=== PATIENT | female | born 1970 | race Caucasian/White ===

== ENCOUNTER 2021-02-08 08:49 | Outpatient (REF) | payer OTHER, SELFPAY ==
--- NOTE | ~2021-02-08 | MR_ITS ---
EXAMINATION: MR BRAIN WITHOUT CONTRAST CLINICAL INFORMATION: Dizziness. Cerebellar ataxia. COMPARISON: None TECHNIQUE: Multiplanar, multisequence imaging of the brain was performed without contrast. FINDINGS: No diffusion abnormalities are identified to suggest an acute or subacute infarct. The ventricles are normal in size. No mass effect or midline shift is seen. Minimal left frontal white matter signal changes noted. No extra-axial fluid collections are seen. The brainstem is normal. The right cerebellar tonsil is slightly low-lying but maintains a normal rounded configuration. The gradient refocused acquisition is normal. The craniovertebral junction, marrow signal, and midline structures are normal. The major intracranial flow voids at the level of the quinault of Jones are preserved. The dural venous sinus flow voids are maintained. The paranasal sinuses are fairly well aerated. There is a mild amount of fluid in the mastoid air cells bilaterally. MR/MR head/brain wo con IMPRESSION: No acute intracranial process. Minimal left frontal white matter signal changes. Mildly low-lying right cerebellar tonsil with a normal rounded configuration. Mild amount of fluid in the mastoid air cells bilaterally.
== END 2021-02-08 08:50 | disposition home or self-care (01) ==
LOC: HO.MRI 08:49
PROVIDERS: PCP Internal Medicine; Visit Provider Psychiatry & Neurology Neurology
DX: R42 Dizziness and giddiness (principal); G11.9 Hereditary ataxia, unspecified
CPT/HCPCS: 70551

== ENCOUNTER 2025-03-21 10:03 | Outpatient (AMB) | payer OTHER, SELFPAY ==
--- NOTE | 2025-03-21 10:12 | A.OFFVIS_ITS ---
Intake Visit Reasons: 3 mnts Allergies sulfamethoxazole (From Bactrim) Allergy (Unknown, Verified 03/21/25 10:13) Unknown trimethoprim (From Bactrim) Allergy (Unknown, Verified 03/21/25 10:13) Unknown Medication List - Last Reconciled 03/21/25 by Janelle Velez CNP cholecalciferol (vitamin D3) 50 mcg PO DAILY cyclosporine 0.05% (Restasis) 1 drp ophthalmic (eye) Q12H ferrous sulfate 325 mg PO BID primidone 50 mg PO BEDTIME sertraline 150 mg PO DAILY HPI Comments Details: She was doing okay. Primidone was helping with tremor, could be worse at times, especially with stress. No functional impairment. No difficulty eating, drinking, or swallowing. Some stress at home and work. 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 Tremor does not interfere with work. Few occasional headaches. Vision was about the same. Some occasional dizziness and feeling off balance, no falls. Has been losing weight and has appt with GI in 04/2025. Had hysterectomy in 02/2024 followed by hypotension and very low Hgb, hospitalized for 6 days with multiple transfusions. More tremors after pro pranolol was stopped in 03/2024. Chappells vision was getting worse, twitching in lids. Legs are heavy. One?fall at work when a sticky tape caught her leg unwrapping a pallet. Clumsy and dropping things.?Vision problems from dry eyes. She's also had chronic low back pain and neck pain, occasional tingling here and there. Sometimes she feels she has a brain fog, forgets names and processes. She has 2 sons who have Asperger syndrome. She is the sole provider. does not work. She has had her struggles with depression, currently under control. She has H/O neck injury and at work in February of 2015 with 3 bulging disks C5-6-7 and a possible small disc herniation at C5-6.? She has been?followed for ?tremors in her hands and sometimes in her leg that come and go as well as twitching in various muscles occur randomly when she is sitting and resting and some balance issues. Has chronic neck pain. [facility] Medical History (Updated 03/21/25 @ 10:17 by Janelle Velez CNP) Tension headache Peripheral neuropathy Cerebellar ataxia Insomnia Facial paralysis Muscle fasciculation Benign essential tremor Surgical History (Updated 03/21/25 @ 10:13 by Janelle Velez CNP) H/O: hysterectomy Review of Systems Const Denies chills, Denies daytime sleepiness, Reports difficulty sleeping, Denies fatigue, Denies fever(s), Denies frequent falls, Reports headache(s), Denies increased appetite, Denies poor appetite, Denies snoring, Denies weakness, Denies weight gain and Reports weight loss Eyes Denies loss of vision ENT Denies vertigo, Denies dizziness, Reports headache(s) and Denies neck pain Card Denies chest pain at rest, Denies chest pain with activity, Denies syncope, Denies leg edema, Denies palpitations, Denies dyspnea and Denies dyspnea on e xertion Resp Denies cough, Denies dyspnea, Denies dyspnea on exertion and Denies snoring GI Denies abdominal pain, Denies constipation, Reports heartburn, Denies diarrhea and Denies nausea Denies urinary frequency, Denies urinary incontinence and Denies urinary urgency Musc Denies abnormal gait, Denies back pain, Denies myalgias, Reports arthralgias, Denies neck pain, Denies numbness and Denies tingling Neuro Denies abnormal gait, Denies vertigo, Denies dizziness, Denies syncope, Denies frequent falls, Reports headache(s), Denies lack of coordination, Denies loss of vision, Reports memory loss, Denies numbness, Denies Other visual disturbances, Denies restless legs, Denies seizure-like activity, Denies tingling, Denies paresthesias, Reports tremor(s) and Denies weakness Psych Reports anxiety, Reports depression, Denies auditory hallucinations, Reports memory loss and Denies visual hallucinations Endo Denies fatigue and Denies palpitations Physical Exam Const Other: General Appearance:? normal, in no acute distress. Heart:? S1, S2 normal, no murmurs. Lungs:? clear anteriorly and posteriorly. Musculoskeletal:? normal. Extremities:? no edema. Psych:? alert, oriented, cognitive function intact, cooperative with exam. Neuro Other: Abnormal Neurological Findings:?Facial asymmetry. Very mild L > R tremor of extended upper extremities. Mental Status: alert and oriented X 3. Normal attention, orientation, memory, and affect. Cranial Nerves: Pupils are equal, round, and reactive to light. External ocular muscles are intact. Visual cam are full, no ptosis. Facial asymmetry. Facial sensations are normal. Tongue protrudes in midline. Palate elevates symmetrically. Shoulder shrugging is normal Motor Examination: Normal muscle tone, bulk and strength. No atrophy or fasciculations. No drift of the extended upper extremities. DTR 2+. Plantars are flexor. Sensory Exam: Normal light touch, temperature, pinprick, vibration, and joint- position sensations. Rhomberg sign is absent. Coordination: No ataxia. No titubation. Avtsah-dc-dgav, ohrg-gawg-fkev test, and rapid alternating movements were normal. Gait Exam: Within normal limits. Cerebellar Signs: Vkusds-tw-urdz and vzjr-ak-pogw is normal. No dysdiadochokinesia. Extrapyramidal System: Tremor as above. No rigidity with normal facial expressions. No bradykinesia. No bradyphrenia. Normal arm swing and posture. No propulsion or retropulsion. Speech: Normal. No dysphasia or dysarthria. Assessment & Plan Assessment & Plan (1) Tremor: Code(s): R25.1 - Tremor, unspecified Category: Medical Plan: Continue primidone 50mg 1 tablet at bedtime. 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 Coding Level of Care Code Est Pt Level 3 (06469) Diagnoses Tremor R25.1 Facial paralysis G51.0 Dizziness R42
--- OUTSIDE RECORDS SUMMARY | 2025-03-21 11:06 | XMS_ITS ---
Author Name [facility] Organization Unknown Care Team Organization Name Specialty Phone Email Start Date End Da te [facility] Adolph Mosher Primary Care 07/02/202203/25
--- OUTSIDE RECORDS SUMMARY | 2025-03-21 11:06 | XMS_ITS | Encounter Summary ---
Author Organization [facility] Address [address] [place] [address] Care Team Providers Care Horologist Apprentice Name Role Phone Adolph Mosher MD Primary Care Provider [phone] Reason for Referral * Imaging (Routine) - Pending Review Specialty Diagnoses / Procedures Referred By Contac t Referred To Contact Radiology Diagnoses Generalized abdominal cramping Diarrhea, unspecified type Weight loss Procedures US Abdomen Complete Emmie Kramer PA [address] [place] [address] Phone: tel: fax: [address] Phone: tel: Referral ID Status Reason Start Date Expiration Date V isits Requested Visits Authorized [id number] Pending Review 03/18/2025 03/18/2026 1 1 Encounter Details Date Type Department Care Team (Late st Contact Info) Description 03/17/2025 Telephone Adult Medicine [address] [phone] Emmie Kramer PA [address] [place] [address] Social History Tobacco Use Types Packs/Day Years Used Date Smoking Tobacco: Every Day Cigarettes 0.5 10.9 Started: 05/05/2014 Smokeless Tobacco: Never Alcohol Use Standard Drinks/Week Comments Not Currently 0 (1 standard drink = 0.6 oz pur e alcohol) Comments Unknown Sex and Gender Information Value Date Recorded Sex Assigned at Not on file Legal Sex Female 12:41 AM EST Gender Identity Not on file Sexual Orientation Not on file documented as of this encounter Progress Notes * Chelsie Fox - 03/17/2025 9:[address] of abd/pelvis you ordered has been denied due to no recent us. If you would like to do a c5vxsaksu 48 hrs the phone# is [phone] ref # [id number]. documented in this encounter Plan of Treatment Upcoming Encounters Date Type Department Care Team (Late st Contact Info) Description 04/08/2025 11:00 AM EDT Appointment Radiology Department - [address] [phone] 05/23/2025 2:00 PM EDT Consult Gastroenterology - [place] 175 [facility] [address] [address] Hanna Calderon, RIGO [facility] [address] [place] [address] 09/20/2025 8:30 AM EST Office Visit Adult Medicine [address] [phone] Adolph Mosher MD [address] [place] [id number] Scheduled Orders Name Type Priority Associated Diagnoses Orde r Schedule US Abdomen Complete Imaging Routine Generalized abdominal cramping Diarrhea, unspecified type Weight loss Expected: 03/18/2025, Expires: 03/18/2026 documented as of this encounter Visit Diagnoses Diagnosis Generalized abdominal cramping- Primary Diarrhea, unspecified type Weight loss Loss of weight Encounter for screening mammogram for breast cancer documented in this encounter Care Teams Horologist Apprentice Relationship Specialty Start Date End Date Adolph Mosher MD [address] [place] [address] PCP - General Internal Medicine 03/29/22 documented as of this encounter
--- OUTSIDE RECORDS SUMMARY | 2025-03-21 11:06 | XMS_ITS | Clinical Summary ---
Author Organization [facility] Address [address] [address] Phone Care Team Providers Care Quality Assurance Inspector Name Role Phone Nuzhat Macias MD Primary Care Provider [phone] Allergies Active Allergy Reactions Criticality Noted Date Comments Sulfamethoxazole-Trim ethoprim Anaphylaxis High 08/12/2020 Epinephrine Hcl Nausea And Vomiting High 02/03/2006 Procaine Hcl Nausea And Vomiting High 02/03/2006 patient states allergic to novacaine wilth epinephrine complains of fainting and heart palitations Medications propranoloL (INDERAL LA) 80 mg 24 hr capsule Take 80 mg by mouth daily. 07/28/2020 Active gabapentin (NEURONTIN) 100 MG capsule Take 100 mg by mouth 2 (two) times a day. 03/22/2020 Active sertraline (ZOLOFT) 100 MG tablet Take 100 mg by mouth daily. 04/26/2020 Active MULTIVITAMIN ORAL Take 1 capsule by mouth daily. Active flecainide (TAMBOCOR) 100 MG tablet Take 1 tablet by mouth daily as needed. Active calcium carbonate-vitam in D3 1,250 mg (500 mg elemental)-400 units per tablet Take 1 tablet by mouth daily. Active Active Problems Problem Noted Date Diagnosed Date Cerebellar ataxia 04/18/2021 Overview (09/19/2021): 03/14/21 NCV/EMG LE normal, 02/12/21 MRI brain normal with slightly low lying tonsil, 2 nonspecific frontal white matter lesions L >R Dr [place] Dry eyes 04/18/2021 Tremor 04/18/2021 Overview (09/19/2021): Dr Cleveland Primary osteoarthritis of both hands 11/17/2018 Abnormal echocardiogram 02/06/2017 Overview (08/12/2020): 02/06/2017: mild mitral and tricuspid regurgitaiton Renal calculi 08/29/2016 Nondependent alcohol abuse, in remission 016 Cervical disc disorder 10/16/2015 Major depressive disorder, recurrent episode, mo derate 09/28/2015 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 normal Splenic lesion 03/18/2011 Overview (08/12/2020): appearance is consistent with a complex cystic lesion which is highly likely to be benign. 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 Also on zoloft. Aware of risk inclduing hyponatremia, serotonin syndrome. IMO update Osteoarthritis of lumbar spine 03/11/2006 Immunizations No known immunizations Social History Tobacco Use Types Packs/Day Years Used Date Smoking Tobacco: Every Day Smokeless Tobacco: Never Alcohol Use Standard Drinks/Week Comments Yes 0 (1 standard drink = 0.6 oz pur e alcohol) Rarely Education Answer Date Recorded Are you interested in more education? Not on radha e 12/29/2022 Are you concerned about learning? Not on file 12/29/2022 No 12/29/2022 No 12/29/2022 Digital Access Answer Date Recorded No 01/19/2023 No 01/19/2023 Reliable internet access at home? Not on file 01/19/2023 Device with a working camera? Not on file Comments Unknown Sex and Gender Information Value Date Recorded Sex Assigned at Not on file Legal Sex Female 6:44 PM EST Gender Identity Not on file Sexual Orientation Not on file Last Filed Vital Signs Vital Sign Reading Time Taken Comments Blood Pressure 101/64 09/19/2021 11:43 AM EST Pulse 51 09/19/2021 11:43 AM EST Temperature 36.9 C (98.5 F) 09/19/2021 11:43 AM EST Respiratory Rate 16 09/19/2021 11:43 AM EST Oxygen Saturation 99% 09/19/2021 11:43 AM EST Inhaled Oxygen Concentration - - Weight 54.4 kg (120 lb) 09/13/2021 9:00 AM EST Height 165.1 cm (5' 5 ) 09/13/2021 9:00 AM EST Body Mass Index 19.97 09/13/2021 9:00 AM EST Plan of Treatment Health Maintenance Due Date Last Done Comments LIPID PANEL 1968 DEPRESSION SCREENING 1980 SMOKING Hx and SMOKELESS TOBACCO SCREENING 1981 HEPATITIS C SCREENING 1986 HIV ONE-TIME SCREENING (18-65 YEARS) 1986 PNEUMOCOCCAL VACCINES (50+ years) (1 of 2 - PCV) 1987 PAP SMEAR 1989 COLOGUARD 2013 COLONOSCOPY 2013 COLORECTAL CANCER SCREENING 2013 FIT TEST 2013 FOBT 2013 SIGMOIDOSCOPY 2013 VIRTUAL COLONOSCOPY 2013 ZOSTER VACCINES (1 of 2) 2018 COVID-19 VACCINE ( season) 2024 09/28/2021, 09/28/2021, 09/20/2020, Additional history exists MAMMOGRAM 12/02/2024 12/02/2022 Adult Td,Tdap Booster 10/04/2032 10/04/2022 , 05/18/2012, 03/25/2004 HEPATITIS A VACCINES Aged Out No long er eligible based on patient's age to complete this topic HIB VACCINES Aged Out No longer eligi ble based on patient's age to complete this topic MENINGOCOCCAL VACCINES (ACWY) Aged Out No longer eligible based on patient's age to complete this topic MENINGOCOCCAL VACCINES (B) Aged Out N o longer eligible based on patient's age to complete this topic Medical Devices Not on file Insurance O O O O O O O O O [employer] Care Teams Quality Assurance Inspector Relationship Specialty Start Date End Date Nuzhat Macias MD [address] [place] [address] PCP - General Internal Medicine 08/12/20 Additional Source Comments The information contained in this document represents components of the legal health record. It is not the complete legal health record.[facility]
== END 2025-03-21 10:30 | disposition home or self-care (01) ==
LOC: HO.HSM 10:04
PROVIDERS: PCP Internal Medicine; Visit Provider Registered Nurse
DX: R25.1 Tremor, unspecified (principal); G51.0 Bell's palsy; R42 Dizziness and giddiness
CPT/HCPCS: 99213